=== PATIENT | male | born 1965 | race Caucasian/White ===

== ENCOUNTER 2017-12-02 01:38 | Inpatient (IN) | payer MEDICAID ==
[~2017-12-02] VITALS: Ht 165.1 cm; Wt 80.5 kg
[~2017-12-02 01:38] MED LIST: CEPH500C5 PO; ESOM40CA PO; HYDR-569 PO; OMEP20TA23 PO
[2017-12-02] MEDS ORDERED: normal saline 1000ML IV soln IVB ONE (02:10)
[2017-12-02] MEDS ORDERED: ondansetron/PF 4mg/2ml inj IV ONE (02:10)
[2017-12-02 02:42] LABS: BASOPHILS % (AUTO) 0.6 % (0-1); EOSINOPHILS # (AUTO) 0.4 X10'3 (0-0.9); EOSINOPHILS % (AUTO) 4.9 % (0-6); HEMATOCRIT 42.1 % (42.0-52.0); HEMOGLOBIN 14.4 g/dl (14.0-17.9); LYMPHOCYTES % (AUTO) 34.7 % (21-51); MEAN CORPUSCULAR HEMOGLOBIN 26.6 PG (27.0-31.0); MEAN CORPUSCULAR HGB CONC 34.2 % (33.0-36.5); MEAN CORPUSCULAR VOLUME 77.7 FL (78-98); MEAN PLATELET VOLUME 9.5 FL (7.4-10.4); MONOCYTES % (AUTO) 11.2 % (2-12); NEUTROPHILS # (AUTO) 4.2 X10'3 (1.8-7.7); NEUTROPHILS % (AUTO) 48.6 % (42-75); PLATELET COUNT 191 X10'3 (140-440); RED BLOOD COUNT 5.41 X10'6 (4.70-6.10); RED CELL DISTRIBUTION WIDTH 16.6 % (11.5-14.5); WHITE BLOOD COUNT 8.6 X10'3 (4.5-11.0)
[2017-12-02 02:52] LABS: ALBUMIN 2.9 G/DL (3.4-5.0); ALKALINE PHOSPHATASE 294 IU/L (46-116); ANION GAP 7 (8-16); BILIRUBIN,TOTAL 9.4 MG/DL (0.1-1.0); BLOOD UREA NITROGEN 12 MG/DL (7-18); BUN/CREATININE RATIO 17.9 (5.4-32.0); CALCIUM 8.2 MG/DL (8.5-10.1); CHLORIDE 100 MMOL/L (99-107); CREATININE 0.67 MG/DL (0.60-1.10); GLUCOSE 110 MG/DL (70-104); LIPASE 94 U/L (73-393); SODIUM 134 MMOL/L (135-145); TOTAL CARBON DIOXIDE 26.9 MMOL/L (24-32); eGFR > 90 ML/MIN
[2017-12-02 03:00] LABS: TOTAL CELLS COUNTED 100
[2017-12-02 03:01] LABS: ANISOCYTOSIS 1+; PLATELET ESTIMATE NORMAL
[2017-12-02 03:03] LABS: ALANINE AMINOTRANSFERASE 3219 U/L (12-78); ALBUMIN/GLOBULIN RATIO 0.7 (1.1-1.5); ASPARTATE AMINO TRANSFERASE 1635 U/L (10-37); POTASSIUM 3.5 MMOL/L (3.5-5.1); TOTAL PROTEIN 7.3 G/DL (6.4-8.2)
[2017-12-02 04:50] LABS: ETHANOL < 0.010 GM/DL (0.0-0.010)
[2017-12-02 04:54] LABS: ACETAMINOPHEN < 2.0 UG/ML (10-30)
[2017-12-02] MEDS ORDERED: ondansetron/PF 4mg/2ml inj IV PRN (05:45)
[2017-12-02] MEDS ORDERED: magnesium hydroxide 30ml (MOM) UD suspension PO PRN (05:45)
[2017-12-02] MEDS ORDERED: mag hydrox/Alum hydrox/simeth 30ml oral suspension PO PRN (05:45)
[2017-12-02] MEDS: pantoprazole 40MG/NS 100ML BAG 100 ML IV SCH ×4 (06:48→21:23)
[2017-12-02] MEDS: normal saline 1000ml 1,000 ML IV SCH ×3 (06:48→17:20)
[2017-12-02 07:35] LABS: CLARITY,URINE Clear (Clear); COLOR,URINE Dark Yellow (Yellow); GLUCOSE, URINE Negative (Neg); KETONES,URINE Negative (Neg); LEUKOCYTE ESTERASE ,URINE Negative (Neg); NITRITES, URINE Negative (Neg); OCCULT BLOOD,URINE Negative (Neg); PH,URINE 6.5 (4.8-8.0); PROTEIN,URINE Negative (Neg)
[2017-12-02 07:37] LABS: UA COLLECTION TYPE CLN CATCH MIDSTREAM
[2017-12-02 07:46] LABS: URINE AMPHETAMINE SCREEN POSITIVE (Neg); URINE BARBITUATE SCREEN NEGATIVE (Neg); URINE BENZODIAZEPINES SCREEN NEGATIVE (Neg); URINE CANNABINOID SCREEN POSITIVE (Neg); URINE COCAINE SCREEN NEGATIVE (Neg); URINE METHADONE SCREEN NEGATIVE (Neg); URINE OPIATE SCREEN NEGATIVE (Neg); URINE PHENCYCLIDINE SCREEN NEGATIVE (Neg)
[2017-12-02 12:55] VITALS: BP 122/73
[2017-12-02 15:06] LABS: INR 1.3 INR; PROTHROMBIN TIME 13.1 SECONDS (9.0-12.0)
[2017-12-02] MEDS ORDERED: LORazepam 1 MG tablet PO PRN (17:00)
[2017-12-02] MEDS ORDERED: thiamine inj. 100 MG in normal saline 100ml IV soln 100 ML IV ONE (17:00)
[2017-12-02 20:00] VITALS: BP 120/82
[2017-12-02] MEDS ORDERED: nicotine 14mg patch - 24hr TD ONE (20:05)
[2017-12-02] MEDS: nicotine 14mg patch - 24hr TD SCH (20:15)
[2017-12-03] VITALS: BP 109/61
[2017-12-03] MEDS: pantoprazole 40MG/NS 100ML BAG 100 ML IV SCH ×3 (01:42→13:29)
[2017-12-03] MEDS: normal saline 1000ml 1,000 ML IV SCH (04:07)
[2017-12-03 06:00] LABS: HEMATOCRIT 40.2 % (42.0-52.0); HEMOGLOBIN 13.6 g/dl (14.0-17.9); MEAN CORPUSCULAR HEMOGLOBIN 26.8 PG (27.0-31.0); MEAN CORPUSCULAR HGB CONC 33.7 % (33.0-36.5); MEAN CORPUSCULAR VOLUME 79.5 FL (78-98); MEAN PLATELET VOLUME 9.9 FL (7.4-10.4); PLATELET COUNT 173 X10'3 (140-440); RED BLOOD COUNT 5.06 X10'6 (4.70-6.10); RED CELL DISTRIBUTION WIDTH 17.8 % (11.5-14.5); WHITE BLOOD COUNT 6.6 X10'3 (4.5-11.0)
[2017-12-03 06:14] LABS: PARTIAL THROMBOPLASTIN TIME 33 SECONDS (22-32)
[2017-12-03 06:32] LABS: ALBUMIN 2.3 G/DL (3.4-5.0); ALKALINE PHOSPHATASE 244 IU/L (46-116); ANION GAP 7 (8-16); BILIRUBIN,TOTAL 8.1 MG/DL (0.1-1.0); BLOOD UREA NITROGEN 7 MG/DL (7-18); BUN/CREATININE RATIO 7.7 (5.4-32.0); CALCIUM 7.8 MG/DL (8.5-10.1); CHLORIDE 104 MMOL/L (99-107); CREATININE 0.91 MG/DL (0.60-1.10); GLUCOSE 132 MG/DL (70-104); MAGNESIUM 1.9 MG/DL (1.5-2.4); SODIUM 138 MMOL/L (135-145); TOTAL CARBON DIOXIDE 27.3 MMOL/L (24-32); eGFR 88 ML/MIN
[2017-12-03 06:34] LABS: ALANINE AMINOTRANSFERASE 2197 U/L (12-78); ALBUMIN/GLOBULIN RATIO 0.6 (1.1-1.5); ASPARTATE AMINO TRANSFERASE 1043 U/L (10-37); PHOSPHORUS 3.1 MG/DL (2.3-4.5); POTASSIUM 4.1 MMOL/L (3.5-5.1); TOTAL PROTEIN 6.4 G/DL (6.4-8.2)
[2017-12-03 07:26] LABS: TOTAL CELLS COUNTED 100
[2017-12-03 07:28] LABS: ANISOCYTOSIS 2+; HYPOCHROMASIA 1+; MICROCYTOSIS 1+; PLATELET ESTIMATE NORMAL; TARGET CELLS 1+
[2017-12-03 08:00] VITALS: BP 128/76
[2017-12-03] MEDS ORDERED: folic acid inj. 2 MG, thiamine inj. 100 MG, MVI, adult No.4 with vit. K 10 ML in dextro... IV SCH ×4 (08:00)
[2017-12-03] MEDS: nicotine 14mg patch - 24hr TD SCH (08:00)
[2017-12-03 11:00] VITALS: BP 124/73
[2017-12-03 13:22] LABS: HBSAG SCREEN Negative (Negative); HEP A AB, IGM Negative (Negative); HEP B CORE AB, IGM Negative (Negative); HEPATITIS C ANTIBODY >11.0 s/co ratio (0.0-0.9)
[2017-12-03] MEDS ORDERED: THI100T PO (14:28)
[2017-12-03] MEDS ORDERED: NICO-631 TD (14:28)
[2017-12-03] MEDS ORDERED: ONDA4TAB6 PO (14:28)
[2017-12-03] MEDS ORDERED: FOLI1TAB16 PO (14:28)
== END 2017-12-03 16:34 | disposition home or self-care (01) | DRG 279 ==
LOC: ER 01:39 → ED HOLD 05:43 → SUR 3N 12:54
PROVIDERS: ADMIT Internal Medicine; ATTEND Internal Medicine
DX: K72.00 Acute and subacute hepatic failure without coma (principal); E87.1 Hypo-osmolality and hyponatremia; K72.10 Chronic hepatic failure without coma; G89.29 Other chronic pain; F19.10 Other psychoactive substance abuse, uncomplicated; Z79.899 Other long term (current) drug therapy; Z87.442 Personal history of urinary calculi; Z71.51 Drug abuse counseling and surveillance of drug abuser
CPT/HCPCS: 36415; 71045; 74176; 76700; 80053; 80074; 80305; 80320; 80329; 81003; 82140; 83605; 83690; 83735; 84100; 85025; 85610; 85730; 87070; 93005; 96374; 97116; 99285; C9113; J2405; J3411; J3490; J7030; J7060

== ENCOUNTER 2018-01-13 10:28 | Emergency (ER) | payer MEDICAID ==
[~2018-01-13] VITALS: Ht 165.1 cm; Wt 81.0 kg
[~2018-01-13 10:28] MED LIST changes: -CEPH500C5 PO; -ESOM40CA PO; +FOLI1TAB16 PO; -HYDR-569 PO; +NICO-631 TD; +ONDA4TAB6 PO; +THI100T PO
[2018-01-13] MEDS ORDERED: DOXY100C43 PO (11:52)
[2018-01-13] MEDS ORDERED: CefTRIAXone 250MG IM Kit w/LIDOcaine IM ONE (11:55)
[2018-01-13 12:20] LABS: CLARITY,URINE CLEAR (Clear); COLOR,URINE YELLOW (Yellow); GLUCOSE, URINE NEGATIVE (Neg); KETONES,URINE NEGATIVE (Neg); LEUKOCYTE ESTERASE ,URINE NEGATIVE (Neg); NITRITES, URINE POSITIVE (Neg); OCCULT BLOOD,URINE NEGATIVE (Neg); PROTEIN,URINE NEGATIVE (Neg); UROBILINOGEN,URINE 0.2 E.U/dL (0.2-1.0)
[2018-01-13 12:22] VITALS: BP 116/87
[2018-01-13 12:26] LABS: UA COLLECTION TYPE VOIDED
[2018-01-13 12:27] LABS: URINE AMPHETAMINE SCREEN POSITIVE (Neg); URINE BARBITUATE SCREEN NEGATIVE (Neg); URINE BENZODIAZEPINES SCREEN NEGATIVE (Neg); URINE CANNABINOID SCREEN POSITIVE (Neg); URINE COCAINE SCREEN NEGATIVE (Neg); URINE METHADONE SCREEN NEGATIVE (Neg); URINE OPIATE SCREEN NEGATIVE (Neg); URINE PHENCYCLIDINE SCREEN NEGATIVE (Neg)
[2018-01-13 12:28] LABS: BACTERIA,URINE 1+ /HPF (Neg); MUCUS STRANDS FEW /LPF (Neg); RBC,URINE 0-2 /HPF (0-2); SQUAMOUS EPITHELIAL CELL,UR FEW /LPF (FEW); WBC,URINE 0-4 /HPF (0-4)
== END 2018-01-13 12:25 | disposition home or self-care (01) ==
LOC: ER 10:28
DX: N45.1 Epididymitis (principal); F12.10 Cannabis abuse, uncomplicated; F15.10 Other stimulant abuse, uncomplicated; G89.29 Other chronic pain; Z87.442 Personal history of urinary calculi; Z56.0 Unemployment, unspecified; Z79.899 Other long term (current) drug therapy
CPT/HCPCS: 76870; 80305; 81001; 96372; 99285; J0696

== ENCOUNTER 2018-04-05 22:55 | Emergency (ER) | payer MEDICAID ==
[~2018-04-05] VITALS: Ht 165.1 cm; Wt 80.0 kg
[2018-04-05 23:01] VITALS: BP 128/72
== END 2018-04-06 00:33 | disposition left against medical advice (07) ==
LOC: ER 22:56
DX: M79.673 Pain in unspecified foot (principal); Z53.21 Procedure and treatment not carried out due to patient leaving prior to being seen by health care provider

== ENCOUNTER 2018-08-03 14:59 | Emergency (ER) | payer MEDICAID ==
[~2018-08-03] VITALS: Ht 165.1 cm; Wt 82.5 kg
[2018-08-03] MEDS ORDERED: CEPH-572 PO (16:20)
[2018-08-03] MEDS ORDERED: sulfamethoxazole/trimethoprim DS (800/160mg) tablet PO ONE (16:20)
[2018-08-03] MEDS ORDERED: cephalexin 250mg capsule PO ONE (16:20)
[2018-08-03] MEDS ORDERED: SULF1TAB49 PO (16:20)
[2018-08-03] MEDS ORDERED: LIDOcaine 1.5% w/epinephrine 1:200,000 5ml ampul IJ ONE (16:20)
[2018-08-03] MEDS ORDERED: TETanus/Pertussis (Acell)/Diphther VAC/PF (Tdap-Adult) 0.5ml syringe IM ONE (16:20)
[2018-08-03] MEDS ORDERED: LIDOcaine 1% w/epiNEPHrine 1:200,000 30ml vial IJ ONE (16:40)
[2018-08-03 17:29] VITALS: BP 136/89
== END 2018-08-03 17:34 | disposition home or self-care (01) ==
LOC: ER 15:00
DX: N49.2 Inflammatory disorders of scrotum (principal); R05 Cough; F12.10 Cannabis abuse, uncomplicated; F15.10 Other stimulant abuse, uncomplicated; G89.29 Other chronic pain; Z56.0 Unemployment, unspecified; Z87.442 Personal history of urinary calculi
CPT/HCPCS: 55100; 90471; 90715; 99284; J3490

== ENCOUNTER 2018-10-01 10:24 | Emergency (ER) | payer MEDICAID ==
[~2018-10-01] VITALS: Ht 165.1 cm; Wt 90.0 kg
[2018-10-01 10:29] VITALS: BP 123/74
== END 2018-10-01 10:37 | disposition home or self-care (01) ==
LOC: ER 10:25
DX: M77.8 Other enthesopathies, not elsewhere classified (principal); G89.29 Other chronic pain; F12.90 Cannabis use, unspecified, uncomplicated; F15.90 Other stimulant use, unspecified, uncomplicated; Z79.899 Other long term (current) drug therapy; Z56.0 Unemployment, unspecified
CPT/HCPCS: 99281

== ENCOUNTER 2020-09-04 16:40 | Emergency (ER) | payer MEDICAID ==
[~2020-09-04] VITALS: Ht 165.1 cm; Wt 85.2 kg
[2020-09-04 16:53] VITALS: BP 134/99
[2020-09-04] MEDS ORDERED: ibuprofen tablet 400 MG TABLET PO ONE (17:15)
[2020-09-04] MEDS ORDERED: IBUP-1984 PO (17:15)
== END 2020-09-04 17:26 | disposition home or self-care (01) ==
LOC: ER 16:40
DX: M79.641 Pain in right hand (principal); G89.29 Other chronic pain; R20.0 Anesthesia of skin; F12.90 Cannabis use, unspecified, uncomplicated; F15.90 Other stimulant use, unspecified, uncomplicated; Z87.442 Personal history of urinary calculi; Z98.890 Other specified postprocedural states; Z56.0 Unemployment, unspecified; Z79.899 Other long term (current) drug therapy
CPT/HCPCS: 73130; 99283

== ENCOUNTER 2021-01-19 07:05 | Emergency (ER) | payer MEDICAID ==
[~2021-01-19] VITALS: Ht 165.1 cm; Wt 92.0 kg
[2021-01-19 07:20] VITALS: BP 126/83
== END 2021-01-19 08:42 | disposition left against medical advice (07) ==
LOC: ER 07:05
DX: M79.673 Pain in unspecified foot (principal); Z53.21 Procedure and treatment not carried out due to patient leaving prior to being seen by health care provider

== ENCOUNTER 2021-02-26 17:29 | Emergency (ER) | payer MEDICAID | END 2021-02-26 19:06 | disposition left against medical advice (07) | LOC: ER 17:30 | DX: M79.603 Pain in arm, unspecified (principal); Z53.21 Procedure and treatment not carried out due to patient leaving prior to being seen by health care provider ==

== ENCOUNTER 2021-04-07 15:09 | Emergency (ER) | payer MEDICAID ==
[~2021-04-07] VITALS: Ht 165.1 cm; Wt 81.8 kg
[2021-04-07 16:34] VITALS: BP 137/85
[2021-04-07] MEDS ORDERED: PENI500T2 PO (18:48)
[2021-04-07] MEDS ORDERED: penicillin V potassium 500mg tablet PO ONE (18:50)
== END 2021-04-07 19:47 | disposition home or self-care (01) ==
LOC: ER 15:10
DX: R22.0 Localized swelling, mass and lump, head (principal); G89.29 Other chronic pain; F12.90 Cannabis use, unspecified, uncomplicated; F15.90 Other stimulant use, unspecified, uncomplicated; F17.210 Nicotine dependence, cigarettes, uncomplicated; Z72.89 Other problems related to lifestyle; Z56.0 Unemployment, unspecified; Z87.442 Personal history of urinary calculi; Z79.2 Long term (current) use of antibiotics; Z79.899 Other long term (current) drug therapy
CPT/HCPCS: 99283

== ENCOUNTER 2021-04-08 20:02 | Emergency (ER) | payer MEDICAID ==
[~2021-04-08] VITALS: Ht 165.1 cm; Wt 86.5 kg
[~2021-04-08 20:02] MED LIST changes: +PENI500T2 PO
[2021-04-09] MEDS ORDERED: sulfamethoxazole/trimethoprim DS (800/160mg) tablet PO ONE ×2 (01:00→05:45)
[2021-04-09] MEDS ORDERED: LIDOcaine 1% W/epiNEPHrine 1:200,000 10ml vial IJ ONE (05:05)
[2021-04-09 05:24] VITALS: BP 121/76
[2021-04-09] MEDS ORDERED: SULF1TAB49 PO (05:47)
== END 2021-04-09 05:45 | disposition home or self-care (01) ==
LOC: ER 20:03
DX: L02.413 Cutaneous abscess of right upper limb (principal); K21.9 Gastro-esophageal reflux disease without esophagitis; G89.29 Other chronic pain; F12.90 Cannabis use, unspecified, uncomplicated; F15.90 Other stimulant use, unspecified, uncomplicated; Z87.442 Personal history of urinary calculi; Z98.890 Other specified postprocedural states; Z72.89 Other problems related to lifestyle; Z56.0 Unemployment, unspecified; Z79.2 Long term (current) use of antibiotics; Z79.899 Other long term (current) drug therapy
CPT/HCPCS: 10060; 76536; 76882; 99284; 99285

== ENCOUNTER 2021-05-26 03:15 | Emergency (ER) | payer MEDICAID ==
[~2021-05-26] VITALS: Ht 165.1 cm; Wt 85.0 kg
[~2021-05-26 03:15] MED LIST changes: -PENI500T2 PO
[2021-05-26 03:31] VITALS: BP 139/87
[2021-05-26] MEDS ORDERED: NAPR-56 PO (07:14)
[2021-05-26] MEDS ORDERED: ketorolac trometh. 30mg/ml inj. IM ONE (07:15)
--- NOTE | 2021-05-26 08:04 | NUR ---
pain is in pt's left hand and wrist
== END 2021-05-26 08:09 | disposition home or self-care (01) ==
LOC: ER 03:16
DX: M25.532 Pain in left wrist (principal); F17.210 Nicotine dependence, cigarettes, uncomplicated; F15.10 Other stimulant abuse, uncomplicated; F12.10 Cannabis abuse, uncomplicated; Z56.0 Unemployment, unspecified; K21.9 Gastro-esophageal reflux disease without esophagitis; Z87.442 Personal history of urinary calculi; Z79.899 Other long term (current) drug therapy
CPT/HCPCS: 29125; 76882; 96372; 99284; J1885

== ENCOUNTER 2021-08-27 15:55 | Inpatient (IN) | payer MEDICAID ==
[~2021-08-27] VITALS: Ht 167.6 cm; Wt 81.0 kg
[2021-08-27 17:34] LABS: BASOPHILS % (AUTO) 0.5 % (0-1); EOSINOPHILS # (AUTO) 0.3 X10'3 (0-0.9); EOSINOPHILS % (AUTO) 5.4 % (0-6); HEMATOCRIT 44.1 % (42.0-52.0); HEMOGLOBIN 14.7 g/dl (14.0-17.9); LYMPHOCYTES # (AUTO) 1.9 X10'3 (1.1-4.8); LYMPHOCYTES % (AUTO) 29.4 % (21-51); MEAN CORPUSCULAR HEMOGLOBIN 27.4 PG (27.0-31.0); MEAN CORPUSCULAR HGB CONC 33.3 g/dL (33.0-36.5); MEAN CORPUSCULAR VOLUME 82.2 FL (78-98); MEAN PLATELET VOLUME 7.8 FL (7.4-10.4); MONOCYTES # (AUTO) 0.4 X10'3 (0-0.9); MONOCYTES % (AUTO) 6.6 % (2-12); NEUTROPHILS # (AUTO) 3.7 X10'3 (1.8-7.7); NEUTROPHILS % (AUTO) 58.1 % (42-75); PLATELET COUNT 251 X10'3 (140-440); RED BLOOD COUNT 5.37 X10'6 (4.70-6.10); RED CELL DISTRIBUTION WIDTH 14.2 % (11.5-14.5); WHITE BLOOD COUNT 6.4 X10'3 (4.5-11.0)
[2021-08-27 17:35] LABS: D-DIMER 0.28 MG/L FEU (0-0.50)
[2021-08-27 17:38] LABS: ALBUMIN 3.7 G/DL (3.4-5.0); ALBUMIN/GLOBULIN RATIO 0.9 (1.1-1.5); ANION GAP 11 (8-16); ASPARTATE AMINO TRANSFERASE 20 U/L (10-37); BILIRUBIN,TOTAL 0.2 MG/DL (0.1-1.0); BLOOD UREA NITROGEN 16 MG/DL (7-18); BUN/CREATININE RATIO 19.8 (5.4-32.0); CALCIUM 8.4 MG/DL (8.5-10.1); CHLORIDE 111 MMOL/L (99-107); CREATININE 0.81 MG/DL (0.60-1.10); GLUCOSE 95 MG/DL (70-104); POTASSIUM 3.7 MMOL/L (3.5-5.1); SODIUM 147 MMOL/L (135-145); TOTAL PROTEIN 7.8 G/DL (6.4-8.2); eGFR > 90 ML/MIN
[2021-08-27 17:39] LABS: ALANINE AMINOTRANSFERASE 25 U/L (12-78); ALKALINE PHOSPHATASE 56 IU/L (46-116)
[2021-08-27 17:47] LABS: MAGNESIUM 2.3 MG/DL (1.5-2.4)
[2021-08-27 18:27] LABS: ETHANOL 0.069 GM/DL (0.0-0.010)
[2021-08-27] MEDS ORDERED: mag hydrox/Alum hydrox/simeth 30ml oral suspension PO PRN (19:50)
[2021-08-27] MEDS ORDERED: ondansetron/PF 4mg/2ml inj IV PRN (19:50)
[2021-08-27] MEDS ORDERED: LORazepam 1 MG tablet PO PRN (19:50)
[2021-08-27] MEDS ORDERED: HYDROcodone/acetaminophen 5mg/325mg tablet PO PRN (19:50)
[2021-08-27] MEDS ORDERED: diphenhydrAMINE 50 mg/ml inj IV PRN (19:50)
[2021-08-27] MEDS ORDERED: dextrose 50%-water 50ml dispensing syringe IV PRN (19:50)
[2021-08-27] MEDS ORDERED: acetaminophen 325mg tablet PO PRN ×2 (19:50)
[2021-08-27] MEDS ORDERED: haloperidol lactate 5mg/ml inj IM PRN (19:50)
[2021-08-27] MEDS ORDERED: magnesium hydroxide 30ml (MOM) UD suspension PO PRN (19:50)
[2021-08-27] MEDS ORDERED: haloperidol 5mg tablet PO PRN (19:50)
[2021-08-27] MEDS ORDERED: diphenhydrAMINE 25mg capsule PO PRN (19:50)
[2021-08-27] MEDS ORDERED: bisacodyl 10mg suppository rectal RC PRN (19:50)
[2021-08-27] MEDS ORDERED: morphine 2 MG/ML inj. syringe IV PRN ×2 (19:50)
[2021-08-27] MEDS ORDERED: LORazepam 2 mg/ml vial IV PRN (19:50)
[2021-08-27] MEDS ORDERED: ondansetron 4mg rapidly disintigrating tab PO PRN (19:50)
[2021-08-27] MEDS ORDERED: acetaminophen 650mg rectal suppository RC PRN (19:50)
[2021-08-27 20:17] LABS: PHOSPHORUS 3.4 MG/DL (2.3-4.5)
[2021-08-27 20:41] LABS: CREATINE KINASE 160 U/L (39-308); LIPASE 141 U/L (73-393)
[2021-08-27] MEDS: thiamine 100mg tablet PO SCH (20:41)
[2021-08-27] MEDS: docusate sod 100mg capsule PO SCH (20:41)
[2021-08-27] MEDS: heparin, porcine 5000 units/ml vial SQ SCH (20:45)
[2021-08-27] MEDS ORDERED: thiamine 100mg/ml 2ml inj. IV SCH (21:00)
[2021-08-27] MEDS ORDERED: temazepam 15mg capsule PO PRN (21:00)
[2021-08-27] MEDS: dextrose 5%-water 1,000 ML IV SCH (22:48)
--- NOTE | 2021-08-28 00:48 | NUR ---
Patient resting comfortably in bed. No issues noted at this time.
[2021-08-28 04:01] VITALS: BP 137/79
[2021-08-28] MEDS ORDERED: OMEP40CA21 PO (04:59)
[2021-08-28 05:00] LABS: BASOPHILS % (AUTO) 0.4 % (0-1); EOSINOPHILS # (AUTO) 0.4 X10'3 (0-0.9); EOSINOPHILS % (AUTO) 7.8 % (0-6); HEMATOCRIT 42.2 % (42.0-52.0); HEMOGLOBIN 13.9 g/dl (14.0-17.9); LYMPHOCYTES # (AUTO) 1.9 X10'3 (1.1-4.8); LYMPHOCYTES % (AUTO) 33.9 % (21-51); MEAN CORPUSCULAR HEMOGLOBIN 27.2 PG (27.0-31.0); MEAN CORPUSCULAR HGB CONC 32.9 g/dL (33.0-36.5); MEAN CORPUSCULAR VOLUME 82.7 FL (78-98); MEAN PLATELET VOLUME 7.8 FL (7.4-10.4); MONOCYTES # (AUTO) 0.5 X10'3 (0-0.9); MONOCYTES % (AUTO) 9.2 % (2-12); NEUTROPHILS # (AUTO) 2.7 X10'3 (1.8-7.7); NEUTROPHILS % (AUTO) 48.7 % (42-75); PLATELET COUNT 226 X10'3 (140-440); RED BLOOD COUNT 5.11 X10'6 (4.70-6.10); RED CELL DISTRIBUTION WIDTH 14.5 % (11.5-14.5); WHITE BLOOD COUNT 5.5 X10'3 (4.5-11.0)
[2021-08-28 05:13] LABS: ALANINE AMINOTRANSFERASE 18 U/L (12-78); ALBUMIN 3.1 G/DL (3.4-5.0); ALBUMIN/GLOBULIN RATIO 0.9 (1.1-1.5); ANION GAP 6 (8-16); ASPARTATE AMINO TRANSFERASE 18 U/L (10-37); BILIRUBIN,TOTAL 0.4 MG/DL (0.1-1.0); BLOOD UREA NITROGEN 20 MG/DL (7-18); BUN/CREATININE RATIO 24.4 (5.4-32.0); CALCIUM 7.7 MG/DL (8.5-10.1); CHLORIDE 103 MMOL/L (99-107); CHOLESTEROL 139 MG/DL (0-200); CREATININE 0.82 MG/DL (0.60-1.10); GLUCOSE 236 MG/DL (70-104); HDL CHOLESTEROL 47 MG/DL (35-60); LDL CHOLESTEROL 72 MG/DL (50-100); POTASSIUM 3.4 MMOL/L (3.5-5.1); SODIUM 136 MMOL/L (135-145); TOTAL CARBON DIOXIDE 26.9 MMOL/L (24-32); TOTAL PROTEIN 6.6 G/DL (6.4-8.2); TRIGLYCERIDES 65 MG/DL (20-135); eGFR > 90 ML/MIN
[2021-08-28 05:26] LABS: ALKALINE PHOSPHATASE 48 IU/L (46-116)
[2021-08-28] MEDS: dextrose 5%-water 1,000 ML IV SCH ×2 (06:05→08:52)
[2021-08-28] MEDS ORDERED: pantoprazole 40mg Tablet.DR PO SCH (07:30)
[2021-08-28] MEDS: thiamine 100mg tablet PO SCH (07:38)
[2021-08-28] MEDS: docusate sod 100mg capsule PO SCH (07:38)
[2021-08-28] MEDS: heparin, porcine 5000 units/ml vial SQ SCH (07:46)
[2021-08-28] MEDS ORDERED: folic acid 1mg/0.2ml inj IV SCH (08:00)
[2021-08-28] MEDS ORDERED: nicotine 21mg patch - 24 hr TD SCH (08:00)
--- NOTE | 2021-08-28 09:30 | NUR ---
After voicing to hospitalist that pt wanted to leave so he "go drink and smoke". The pt was found to be not in his room. Security footage reviewed by safety officers. Pt was found to leave ED heading southbound at 0913 with [address] still in place. Alma Delia contacted.
[2021-09-01] MEDS ORDERED: folic acid 1mg tablet PO SCH (08:00)
== END 2021-08-29 09:13 | disposition left against medical advice (07) | DRG 204 ==
LOC: ER 15:56 → ED HOLD 20:01
PROVIDERS: ADMIT Family Medicine; ATTEND Internal Medicine
DX: R55 Syncope and collapse (principal); E87.0 Hyperosmolality and hypernatremia; F10.229 Alcohol dependence with intoxication, unspecified; F17.210 Nicotine dependence, cigarettes, uncomplicated; G89.29 Other chronic pain; K21.9 Gastro-esophageal reflux disease without esophagitis; E86.0 Dehydration; Y90.0 Blood alcohol level of less than 20 mg/100 ml; I12.9 Hypertensive chronic kidney disease with stage 1 through stage 4 chronic kidney disease, or unspecified chronic kidney disease; M19.90 Unspecified osteoarthritis, unspecified site; N18.9 Chronic kidney disease, unspecified; Z87.442 Personal history of urinary calculi; Z79.899 Other long term (current) drug therapy; Z56.0 Unemployment, unspecified; Z71.6 Tobacco abuse counseling; Z71.41 Alcohol abuse counseling and surveillance of alcoholic
CPT/HCPCS: 36415; 70450; 71045; 72125; 80053; 80061; 80305; 80320; 82550; 83036; 83690; 83735; 83880; 84100; 84443; 84484; 85025; 85379; 85610; 93005; 93880; 99285; G0378; J1644; J2270; J7070

== ENCOUNTER 2021-12-24 19:02 | Emergency (ER) | payer MEDICAID ==
[~2021-12-24 19:02] MED LIST changes: -FOLI1TAB16 PO; -NICO-631 TD; -OMEP20TA23 PO; +OMEP40CA21 PO; -ONDA4TAB6 PO; -THI100T PO
--- NOTE | 2021-12-24 19:21 | NUR ---
NOT IN LOBBY
--- NOTE | 2021-12-24 19:31 | NUR ---
NOT IN LOBBY
--- NOTE | 2021-12-24 21:14 | NUR ---
not in lobby
== END 2021-12-24 22:15 | disposition left against medical advice (07) ==
LOC: ER 19:03
DX: Z53.21 Procedure and treatment not carried out due to patient leaving prior to being seen by health care provider (principal)

== ENCOUNTER 2022-06-17 17:21 | Emergency (ER) | payer MEDICAID ==
[~2022-06-17] VITALS: Ht 165.1 cm; Wt 81.0 kg
[2022-06-17 17:42] VITALS: BP 122/76
[2022-06-17 18:39] LABS: BASOPHILS % (AUTO) 0.6 % (0-1); EOSINOPHILS # (AUTO) 0.3 X10'3 (0-0.9); EOSINOPHILS % (AUTO) 3.8 % (0-6); HEMATOCRIT 38.3 % (42.0-52.0); HEMOGLOBIN 12.6 g/dl (14.0-17.9); LYMPHOCYTES # (AUTO) 1.5 X10'3 (1.1-4.8); LYMPHOCYTES % (AUTO) 21.7 % (21-51); MEAN CORPUSCULAR HEMOGLOBIN 26.5 PG (27.0-31.0); MEAN CORPUSCULAR VOLUME 80.4 FL (78-98); MEAN PLATELET VOLUME 8.3 FL (7.4-10.4); MONOCYTES # (AUTO) 0.8 X10'3 (0-0.9); NEUTROPHILS # (AUTO) 4.2 X10'3 (1.8-7.7); NEUTROPHILS % (AUTO) 61.9 % (42-75); PLATELET COUNT 293 X10'3 (140-440); RED BLOOD COUNT 4.76 X10'6 (4.70-6.10); RED CELL DISTRIBUTION WIDTH 15.8 % (11.5-14.5); WHITE BLOOD COUNT 6.7 X10'3 (4.5-11.0)
[2022-06-17 18:57] LABS: ALANINE AMINOTRANSFERASE 15 U/L (12-78); ALBUMIN/GLOBULIN RATIO 0.6 (1.1-1.5); ALKALINE PHOSPHATASE 113 IU/L (46-116); ANION GAP 7 (8-16); ASPARTATE AMINO TRANSFERASE 15 U/L (10-37); BILIRUBIN,TOTAL 0.3 MG/DL (0.1-1.0); BLOOD UREA NITROGEN 11 MG/DL (7-18); BUN/CREATININE RATIO 14.5 (5.4-32.0); CALCIUM 8.6 MG/DL (8.5-10.1); CHLORIDE 102 MMOL/L (99-107); CREATININE 0.76 MG/DL (0.60-1.10); GLUCOSE 126 MG/DL (70-104); POTASSIUM 3.4 MMOL/L (3.5-5.1); SODIUM 137 MMOL/L (135-145); TOTAL CARBON DIOXIDE 27.9 MMOL/L (24-32); eGFR > 90 ML/MIN
[2022-06-17 19:05] LABS: LIPASE 104 U/L (73-393)
== END 2022-06-17 21:52 | disposition left against medical advice (07) ==
LOC: ER 17:22
DX: R18.8 Other ascites (principal); Z53.21 Procedure and treatment not carried out due to patient leaving prior to being seen by health care provider
CPT/HCPCS: 36415; 80053; 83690; 83880; 85025

== ENCOUNTER 2022-06-18 14:06 | Emergency (ER) | payer MEDICAID ==
[~2022-06-18] VITALS: Ht 165.1 cm; Wt 81.8 kg
[2022-06-18 14:15] VITALS: BP 126/78
== END 2022-06-18 19:24 | disposition left against medical advice (07) ==
LOC: ER 14:06
DX: R10.30 Lower abdominal pain, unspecified (principal); Z53.21 Procedure and treatment not carried out due to patient leaving prior to being seen by health care provider

== ENCOUNTER 2022-06-19 04:14 | Emergency (ER) | payer MEDICAID ==
[~2022-06-19] VITALS: Ht 165.1 cm; Wt 79.1 kg
[2022-06-19 05:06] VITALS: BP 117/78
== END 2022-06-19 06:06 | disposition left against medical advice (07) ==
LOC: ER 04:15
DX: R10.9 Unspecified abdominal pain (principal); Z53.21 Procedure and treatment not carried out due to patient leaving prior to being seen by health care provider

== ENCOUNTER 2025-04-09 21:11 | Emergency (ER) | payer MEDICAID ==
[~2025-04-09] VITALS: Ht 165.1 cm; Wt 101.0 kg
--- NOTE | 2025-04-09 21:45 | Physician Documentation ---
History of Present Illness Chief Complaint: Abdominal Pain Stated Complaint: ABD PAIN OK to notify your PCP?: Yes Primary Medical Doctor: [facility] Source: patient Mode of Arrival: POV Exam Limitations: no limitations HPI 59-year-old male presents with upper abdominal pain at his hernia site for the past month. He states that it is progressively getting worse in it is difficult to swallow. He denies any nausea vomiting or diarrhea. He states that he is unable to reduce the hernia but has never been able to put it back in. Reports he used to be soft and now it is firm to the touch. History as above. Patient does endorse that it got suddenly worse four days ago after a night of binge drinking and vomiting. He continues to pass gas and defecating normally Medication Reconciliation Allergies: Coded Allergies: No Known Allergies (Unverified , 08/27/21) Scheduled Omeprazole (Prilosec), 1 CAP PO DAILY, (Reported) Past Medical History Past Medical History: GERD, Kidney Stones, Arthritis, Chronic Pain Past Surgical History: other Alcohol Use: Heavy Drug Use: marijuana, methamphetamine Lives with: Spouse Lives In: Home Occupation: unemployed Review of Systems All Other Systems at this time: Reviewed and Negative ROS All review of systems negative except as per HPI Physical Exam Vital Signs: RN Vital Signs have been reviewed: Yes, Temperature: 98.2, Source: Temporal, Heart Rate: 92, Respiratory Rate: 18, BP: 157/103, Pulse Oximetry: 97, Weight: 101.050 Pulse Oximetry Reflects: adequate oxygenation Physical Exam General: Alert, no distress. HEENT: No injection, moist mucous membranes. Neck: Full range of motion. Respiratory: No respiratory distress, equal chest rise and fall. Chest: No accessory muscle use. Cardiovascular: Regular rate and rhythm. Gastrointestinal: Distended, epigastric tenderness, hernia is large, soft and not reducible. Extremities: Normal range of motion, no deformity. Neurologic: Oriented x4. Psychiatric: Normal mood and affect. Skin: Normal color, warm and dry. 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 Patient presented to the emergency room with umbilical hernia pain and problems swallowing. Differentials include but are not limited to achalasia, incarcerated hernia, small-bowel obstruction, pancreatitis therefore emergent labs and imaging indicated. CT scan is reassuring. Given patient's history reporting food sometimes get stuck going in his esophagus he is likely suffering from achalasia. He has established with a primary care and I have instructed him that he needs to follow up with a GI doctor to have likely he had dilation of his esophagus. Patient's urine is unusual however it does not appears the cleaned in his catch and he has no symptoms of urinary tract infection and I will not treat for urinary tract infection Differential Dx:Considerations: Include: Aortic dissection, Appendicitis, Bowel obstruction, Cholangitis, Cholelithasis, Esophagitis, Gastroenteritis, GI hemorrhage, Hepatitis, Ischemic bowel, Urinary obstruction, Urinary tract infection Departure Disposition: HOME / SELF CARE / HOMELESS Impression: Primary Impression: Umbilical hernia Additional Impression: Achalasia Condition: Improved Discharge Instructions: Achalasia, Umbilical Hernia, Adult Additional Instructions: Speak to your doctor about getting referrals to a GI doctor to dilate your esophagus and to be referred to surgeon to repair your hernia. Referrals: NO PRIMARY CARE PROVIDER (PCP) Education Educated regarding: diagnosis, treatment, need for follow up Additional Comment Medical Screen Exam This patient recieved a medical screening examination. After reviewing the individual's medical complaints with presenting symptoms and performing an appropriate physical examination, it was determined that no immediate life- threatening emergency medical condition is present. This individual is also not a women having contractions. Signature Scribe Signature: No scribe Attestation: The note accurately reflects work and decisions made by me.Baldemar Chanel MD 04/10/25 02:36 NUHA SCHUSTER Apr 09, 2025 21:45 BALDEMAR CHANEL MD Apr 09, 2025 23:27
[2025-04-09 21:59] LABS: MEAN PLATELET VOLUME 7.8 FL (7.4-10.4); RED CELL DISTRIBUTION WIDTH 15.1 % (11.5-14.5)
[2025-04-09 22:15] LABS: CREATININE 0.93 MG/DL (0.60-1.10); TOTAL CARBON DIOXIDE 26.7 MMOL/L (24-32); eCRCL 76 ML/MIN; eGFR 84 ML/MIN
[2025-04-09] MEDS ORDERED: iohexol 300mg/ml 100ml inj. ONE (22:25)
[2025-04-09 22:30] LABS: PRO BRAIN NATRIURETIC PEPTIDE 79 PG/ML (0-125)
[2025-04-09] MEDS: ondansetron/PF 4mg/2ml inj IV ONE (23:51)
[2025-04-09] MEDS: morphine 4 MG/ML inj SYRINge IV ONE (23:51)
[2025-04-09] MEDS: normal saline 1000ml 1,000 ML IV ONE (23:52)
[2025-04-10] MEDS ORDERED: iohexol 300mg/ml 100ml inj. ONE (00:06)
--- NOTE | 2025-04-10 00:26 | RADIOLOGY REPORT ---
EXAM: DI CHEST,SINGLE VIEW CLINICAL HISTORY: CP TECHNIQUE: Single AP view of the chest WID: COMPARISON: CHEST,SINGLE VIEW on DOS: 08/27/21 FINDINGS: Lines and tubes: None Chest: Cardiomegaly. Mild prominence of the central pulmonary vasculature. No pleural effusion, pneumothorax, or consolidation. Linear bibasilar scarring or atelectasis. The osseous structures are grossly intact. IMPRESSION: Mild cardiomegaly and mild prominence of the central pulmonary vasculature.
[2025-04-10 00:41] LABS: LEUKOCYTE ESTERASE ,URINE TRACE (Neg); NITRITES, URINE NEGATIVE (Neg); OCCULT BLOOD,URINE TRACE-INTACT (Neg)
[2025-04-10 00:42] LABS: UA COLLECTION TYPE CLN CATCH MIDSTREAM
[2025-04-10 00:53] LABS: SQUAMOUS EPITHELIAL CELL,UR FEW /LPF (FEW); YEAST MODERATE /HPF (NEGATIVE)
--- NOTE | 2025-04-10 02:24 | RADIOLOGY REPORT ---
Exam: CT CT ABDOMEN PELVIS W/ IV CONTRAST History: abdominal hernia- pain and unreducible COMPARISON: None Technique: Multidetector spiral CT of the abdomen and pelvis was performed from lung bases to pubic s ymphysis. Intravenous contrast was administered during this examination. Portal venous imaging was o btained. Axial, coronal and sagittal multiplanar reformats were performed by the technologist on a Via workstation. Radiation Dose : 1. Abdomen/Pelvis: CTDIvol 33.86 mGy, DLP 1912.94 mGy*cm. CONTRAST: Type of contrast: Omniscan 350 Contrast injected: 100 ml Findings: Lung Bases: No acute or significant lung base finding. Normal heart size. No pleural or pericardial effusion. Liver: The liver is enlarged, measuring 19.3 cm in craniocaudal dimension. Diffuse hepatic steatosis. No focal lesions. Normal hepatic vascular enhancement. Gallbladder and Biliary Tree: Unremarkable Spleen: Unremarkable Pancreas: The pancreas is normal in appearance without focal lesions or abnormal enhancement. Adrenal Glands: Unremarkable Kidneys: Punctate nonobstructive bilateral pelvocaliceal calculi. No hydronephrosis. Bilateral jasmin l cortical cysts, the largest of which measures 1.6 cm within the right inferior pole. Bladder: Unremarkable Bowel: The stomach is grossly normal in appearance. Small bowel and colon are normal in caliber and d istribution. The appendix is not visualized; however, no secondary findings of acute appendicitis chance ntified. Ascites: Absent Lymphadenopathy: Enlarged peripancreatic and gastrohepatic lymph nodes measure up to 1.4 cm in short axis dimension. Abdominal Wall and Mesentery: Small fat containing umbilical hernia. Vasculature: The visualized abdominal aorta is normal in size and caliber. Atherosclerotic vascular c alcifications. Abdominal and pelvic vessels demonstrate normal enhancement. Pelvic Organs: Unremarkable Musculoskeletal: No aggressive focal bony lesions, acute fractures or dislocation. Anterolisthesis of L5 on S1 measures 8 mm and is associated with bilateral pars interarticularis defects. IMPRESSION: 1. No acute abdominal or pelvic finding. 2. Hepatomegaly and hepatic steatosis. 3. Enlarged peripancreatic and gastrohepatic lymph nodes. 4. Nonobstructive bilateral nephrolithiasis. Radiation optimization: All CT scans at this facility use at least one of these dose optimization puneet hniques: automated exposure control mA and/or kV adjustment per patient size (includes targeted exam s where dose is matched to clinical indication) or iterative reconstruction.
[2025-04-10 02:45] VITALS: BP 146/72; PULSE 87; RESP 19; TEMP 98.2; O2SAT 100
--- NOTE | 2025-04-10 06:16 | ELECTROCARDIOGRAPH REPORT ---
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 Feliciano Khan Measurements Intervals [place] Rate: 81 P: 44 MO: 172 QRS: 63 QRSD: 101 T: 38 QT: 394 QTc: 458 Interpretive Statements Sinus rhythm Electronically Signed On 04-10-2025 6:16:[address] Feliciano Khan Please click the below link to view image of tracing.
== END 2025-04-10 02:47 | disposition home or self-care (01) ==
LOC: ER 21:11
DX: K42.9 Umbilical hernia without obstruction or gangrene (principal); K22.0 Achalasia of cardia; R06.02 Shortness of breath; M19.90 Unspecified osteoarthritis, unspecified site; F12.90 Cannabis use, unspecified, uncomplicated; F15.90 Other stimulant use, unspecified, uncomplicated
CPT/HCPCS: 36415; 71045; 74177; 80053; 81001; 83690; 83880; 84484; 85025; 87088; 93005; 96361; 96374; 96375; 99285; J2270; J2405; J7030; Q9967